=== PATIENT | male | born 1985 | race Caucasian/White ===

== ENCOUNTER 2024-07-26 08:18 | Emergency (ER) | payer OTHER ==
[~2024-07-26] VITALS: Ht 182.9 cm; Wt 89.0 kg
[2024-07-26 08:20] VITALS: BP 134/93; PULSE 79; RESP 18; TEMP 98.1; O2SAT 100
[2024-07-26] MEDS: ACETAMINOPHEN/CODEINE 300-30 MG TABLET PO ONE (09:20)
[2024-07-26] MEDS: IBUPROFEN 600 MG TABLET PO ONE (09:20)
[2024-07-26] MEDS ORDERED: IBUP-1554 PO (10:24)
[2024-07-26] MEDS ORDERED: ACET-2080 PO (10:24)
== END 2024-07-26 10:39 | disposition home or self-care (01) ==
LOC: EMS 08:23
DX: S20.211A Contusion of right front wall of thorax, initial encounter (principal); R55 Syncope and collapse; R42 Dizziness and giddiness; W22.8XXA Striking against or struck by other objects, initial encounter; Y93.89 Activity, other specified; Y92.89 Other specified places as the place of occurrence of the external cause; Y99.8 Other external cause status
CPT/HCPCS: 71101; 99283

== ENCOUNTER 2024-08-19 18:48 | Emergency (ER) | payer OTHER ==
[~2024-08-19] VITALS: Ht 182.9 cm; Wt 88.6 kg
[~2024-08-19 18:48] MED LIST: ACET-2080 PO; IBUP-1554 PO
[2024-08-19] MEDS ORDERED: OMEP-148 PO (18:58)
[2024-08-19 19:34] VITALS: BP 145/111; PULSE 89; RESP 20; TEMP 97.3; O2SAT 99
== END 2024-08-19 20:40 | disposition home or self-care (01) ==
LOC: EMS 18:48
DX: T18.9XXA Foreign body of alimentary tract, part unspecified, initial encounter (principal); Z79.899 Other long term (current) drug therapy; W44.8XXA Other foreign body entering into or through a natural orifice, initial encounter; Y93.89 Activity, other specified; Y92.89 Other specified places as the place of occurrence of the external cause; Y99.8 Other external cause status
CPT/HCPCS: 99281; Z7502

== ENCOUNTER 2024-12-26 14:58 | Emergency (ER) | payer OTHER ==
[~2024-12-26] VITALS: Ht 185.4 cm; Wt 90.9 kg
[~2024-12-26 14:58] MED LIST changes: -ACET-2080 PO; -IBUP-1554 PO; +OMEP-148 PO
[2024-12-26 15:04] VITALS: TEMP 98.1
[2024-12-26] MEDS ORDERED: ACET-3385 PO (16:46)
[2024-12-26] MEDS ORDERED: OXYC5 PO (16:46)
[2024-12-26] MEDS ORDERED: LIDO-57 TP (16:46)
[2024-12-26] MEDS ORDERED: IBUP-1492 PO (16:46)
[2024-12-26 17:00] VITALS: BP 107/82; PULSE 95; RESP 16; O2SAT 98
[2024-12-26] MEDS: LIDOCAINE 5% TRANSDERMAL PATCH TD ONE (17:09)
[2024-12-26] MEDS: KETOROLAC TROMETHAMINE 30 MG/ML VIAL IM ONE (17:09)
== END 2024-12-26 17:16 | disposition home or self-care (01) ==
LOC: EMS 14:58
DX: G89.29 Other chronic pain (principal); M54.50 Low back pain, unspecified; M51.372 Other intervertebral disc degeneration, lumbosacral region with discogenic back pain and lower extremity pain; Z98.890 Other specified postprocedural states; Z79.899 Other long term (current) drug therapy
CPT/HCPCS: 99283; 96372; J1885